=== PATIENT | female | born 1935 | race Caucasian/White ===

== ENCOUNTER 2016-06-22 15:24 | Outpatient (RCR) | payer MEDICARE, MEDICAID ==
[~2016-06-22 15:24] MED LIST: AMIT50TA3 PO; AMT50T PO; ASP81CT PO; EST.625T PO; HCT25T PO; HYDR-2890 PO; HYDR-3720 PO; MULT1TAB63; NAPR-243 PO; ONDA-42 SL; PARO10TA3 PO; POLY17PO23 GT; POLY17PO23 PO; POTA10CA43 PO; SULF1TAB38 PO; TRIGOSAMINE PO
== END 2016-09-20 | disposition home or self-care (01) ==
LOC: LAB 15:24
PROVIDERS: ATTEND Nurse Practitioner Family
DX: R19.7 Diarrhea, unspecified (principal)
CPT/HCPCS: 87045; 87046; 87177; 87324

== ENCOUNTER → 2016-10-18 | Outpatient (CLI) | payer MEDICARE, MEDICAID ==
[~2016-10-18] MED LIST changes: +CATHETER FLUSH 10 ML SYR IV PRN
--- NOTE | 2016-10-18 15:27 | Diagnostic Imaging Report ---
EXAMINATION: Three-phase nuclear medicine bone scan. INDICATION: Knee pain, prior left knee arthroplasty. TECHNIQUE: This study was performed following the administration of approximately 20 mCi of 99m-technetium MDP. Blood pool, blood flow, and delayed series of both knee joints was obtained. 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 On this exam, there is a photopenic defect involving the left knee joint which would correspond to the prosthesis. There does not appear to be any abnormal uptake about the prosthesis to suggest loosening. There is no focal area of increased activity to indicate an acute injury either. There does appear to be fairly severe degenerative disease involving the right knee joint, and there is a small area of increased signal along the medial aspect of the proximal tibia on the right. This may be due to degenerative disease or to recent trauma. The soft tissues are unremarkable. IMPRESSION: 1. There is no abnormal uptake about the total knee prosthesis on the left to suggest loosening or an acute abnormality. 2. 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 The small focus of increased activity along the medial aspect of the knee joint may also be due to degenerative disease or could be a sequela of recent trauma. If plain film examinations of the right knee are available they would be helpful for comparison. Dictated by: Dictated on workstation # [id number]
== END ==
LOC: CARD 10:00
PROVIDERS: ATTEND Orthopaedic Surgery
DX: M25.562 Pain in left knee (principal); Z96.652 Presence of left artificial knee joint; M17.11 Unilateral primary osteoarthritis, right knee
CPT/HCPCS: 78315

== ENCOUNTER → 2016-10-31 | Outpatient (CLI) | payer MEDICARE, MEDICAID ==
[~2016-10-31] MED LIST changes: -CATHETER FLUSH 10 ML SYR IV PRN
[2016-10-31 09:49] LABS: ALANINE AMINOTRANSFERASE 19 U/L (0-55); ALBUMIN 3.8 G/DL (3.2-4.5); ANION GAP 9 MMOL/L (5-14); ASPARTATE AMINO TRANSFERASE 20 U/L (5-34); BILIRUBIN,TOTAL 0.4 MG/DL (0.1-1.0); BLOOD UREA NITROGEN 20 MG/DL (7-18); BUN/CREATININE RATIO 23; CALCIUM 9.9 MG/DL (8.5-10.1); CARBON DIOXIDE 24 MMOL/L (21-32); CHLORIDE 110 MMOL/L (98-107); CHOLESTEROL 210 MG/DL (< 200); CREATININE SERUM 0.88 MG/DL (0.60-1.30); DIRECT LDL 126 MG/DL (1-129); GFR ESTIMATED > 60; GLUCOSE 94 MG/DL (70-105); POTASSIUM 4.2 MMOL/L (3.6-5.0); SODIUM 143 MMOL/L (135-145); TOTAL PROTEIN 6.8 G/DL (6.4-8.2); TRIGLYCERIDES 95 MG/DL (<150); VLDL CHOLESTEROL 19 MG/DL (5-40)
== END ==
LOC: LAB 09:08
PROVIDERS: ATTEND Physician Assistant
DX: I25.10 Atherosclerotic heart disease of native coronary artery without angina pectoris (principal); E78.2 Mixed hyperlipidemia; I10 Essential (primary) hypertension; R55 Syncope and collapse
CPT/HCPCS: 36415; 80053; 80061

== ENCOUNTER → 2017-06-05 | Outpatient (CLI) | payer MEDICARE, MEDICAID ==
--- NOTE | 2017-06-05 14:35 | Diagnostic Imaging Report ---
Bilateral screening mammogram 2D views with tomosynthesis. The current study was also evaluated with a Computer Aided Detection (CAD) system. INDICATION: Screening. No current complaints stated on the questionnaire. COMPARISON: 05/17/2016. FINDINGS: The breasts are composed of heterogeneously dense parenchyma which may decrease mammographic sensitivity. Benign-appearing calcifications are seen. Allowing for technique and positional differences, no suspicious change is seen. IMPRESSION: No significant change. ACR BI-RADS Category 2: Benign findings. Result letter will be mailed to the patient. Note: At least 10% of breast cancer is not imaged by mammography. Dictated by: Dictated on workstation # [id number]
== END ==
LOC: RAD 11:32
PROVIDERS: ATTEND Family Medicine
DX: Z12.31 Encounter for screening mammogram for malignant neoplasm of breast (principal)
CPT/HCPCS: 77067

== ENCOUNTER 2017-06-20 12:05 | Emergency (ER) | payer MEDICARE, MEDICAID ==
[~2017-06-20] VITALS: Ht 160 cm; Wt 72.6 kg
--- OUTSIDE RECORDS SUMMARY | 2017-06-20 12:10 | XMS REPORT ---
Author Author BELKIS MOREL Organization eClinicalWorks Address Unknown Phone Unavailable Care Team Providers Care Railway Traction Line Worker Name Role Phone BELKIS MOREL CP Unavailable Allergies No Known Allergies Problems Problem Type Condition ICD-9 Code Onset Dates Condition Status Problem Edema 782.3 Active Problem Dysphagia, unspecified 787.20 Active Problem Dizziness and giddiness 780.4 Active Problem Lumbago 724.2 Active Problem Counseling on injury prevention V65.43 Active Problem Symptomatic menopausal or female climacteric states 627.2 Active Problem Orthostatic hypotension 458.0 Active Problem Essential hypertension, benign 401.1 Active Medications Medication Code System Code Instructions Start Date End Date Status Dosage Amoxicillin [facility] [place] [address]-27 500 MG Orally Once a day- Rewrote in Belkis's name. Orginal rx from Dr Isidro Apr 30, 2015 4 capsules one time- 1 hour before procedure Results No Known Results Summary Purpose eClinicalWorks Submission
--- OUTSIDE RECORDS SUMMARY | 2017-06-20 12:10 | XMS REPORT ---
Author Author BELKIS MOREL [facility] eClinicalWorks Address Unknown Phone Unavailable Care Team Providers Care [employer] Assistant Manager Name Role Phone BELKIS MOREL CP Unavailable Allergies, Adverse Reactions, Alerts Substance Reaction Event Type Morphine Info Not Available Drug Allergy Codeine Info Not Available Drug Allergy Ancef Info Not Available Drug Allergy Amonia Info Not Available Non Drug Allergy Tape Info Not Available Non Drug Allergy Problems Problem Type Condition Code Onset Dates Condition Status Assessment Atrophic vaginitis N95.2 Active Problem Other seasonal allergic rhinitis J30.2 Active Problem Change in bowel habits R19.4 Active Problem Rash and nonspecific skin eruption R21 Active Problem Hyperlipidemia E78.5 Active Assessment Hot flashes due to menopause N95.1 Active Problem History of colon polyps Z86.010 Active Problem History of colon resection Z90.49 Active Medications Medication Code System Code Instructions Start Date End Date Status Dosage Potassium Chloride Sachi ER [facility] 60166884508 20 MEQ TAKE ONE TABLET BY MOUTH DAILY ALONG WITH HYDROCHLOROTHIAZIDE Hydrochlorothiazide [facility] [address]-61 25 MG TAKE ONE TABLET BY MOUTH ONCE DAILY Amitriptyline HCl [facility] 84134892189 50 MG TAKE ONE TABLET BY MOUTH AT BEDTIME Paroxetine HCl [facility] [address]-60 10 mg Orally Once a day Mar 31, 2016 1 tablet in the morning Flonase [facility] [address]-52 50 MCG/DOSE Nasally Once a day Sep 30, 2015 1 spray in each nostril Dicyclomine HCl [facility] [address]-15 10 MG Orally Four times a day 1 capsule Clobetasol Propionate [facility] [address]-16 0.05 % Externally Twice a day to vulvar sparingly Mar 31, 2016 Apr 14, 2016 1 application to affected area Restasis [facility] [address]-30 0.05 % Apr 04, 2014 instill 1 drop into both eyes by ophthalmic route 2 times per day Triamcinolone Acetonide [facility] [address]-55 0.1 % Externally Twice a day 1 application to affected area Clobetasol Propionate [facility] [address]-01 0.05 % Externally Twice a day February 16, 2016 1 application to affected area MiraLax [facility] [address]-88 17 gram/dose Jun 11, 2014 take 17 g by Oral route 1 time per day Procedures Procedure Coding System Code Date Office Visit, Est Pt., Level 4 CPT-4 08647 Mar 31, 2016 [facility] VISIT ESTABLISHED PATIENT CPT-4 G0467 Mar 31, 2016 Vital Signs Date/Time: Mar 31, 2016 Cardiac Monitoring Heart Rate 80 bpm Weight 157.1 lbs Height 62 in BMI 28.73 Index Blood Pressure Diastolic 77 mmHg Blood Pressure Systolic 124 mmHg Results No Known Results Summary Purpose eClinicalWorks Submission
--- OUTSIDE RECORDS SUMMARY | 2017-06-20 12:10 | XMS REPORT ---
Author Author BELKIS MORLE [facility] eClinicalWorks Address Unknown Phone Unavailable Care Team Providers Care Oxyacetylene Burner Name Role Phone BELKIS MOREL CP Unavailable Allergies, Adverse Reactions, Alerts Substance Reaction Event Type Morphine Info Not Available Drug Allergy Codeine Info Not Available Drug Allergy Ancef Info Not Available Drug Allergy Amonia Info Not Available Non Drug Allergy Tape Info Not Available Non Drug Allergy Problems Problem Type Condition ICD-9 Code Onset Dates Condition Status Assessment Leg pain, bilateral 729.5 Active Problem Edema 782.3 Active Assessment Leg cramping 729.82 Active Assessment Post-menopausal V49.81 Active Problem Dysphagia, unspecified 787.20 Active Problem Dizziness and giddiness 780.4 Active Problem Lumbago 724.2 Active Problem Counseling on injury prevention V65.43 Active Problem Symptomatic menopausal or female climacteric states 627.2 Active Problem Orthostatic hypotension 458.0 Active Problem Essential hypertension, benign 401.1 Active Medications Medication Code System Code Instructions Start Date End Date Status Dosage MiraLax [facility] [address]-69 17 gram/dose Jun 11, 2014 take 17 g by Oral route 1 time per day Restasis [facility] [address]-48 0.05 % Apr 04, 2014 instill 1 drop into both eyes by ophthalmic route 2 times per day Cholecalciferol [facility] [address] 71596 UNIT Orally twice weekly for 8 weeks then 2,000 units over the counter daily 1 tablet Hydrochlorothiazide [facility] 28125653916 25 MG TAKE ONE TABLET BY MOUTH DAILY Amitriptyline HCl [facility] [address]-05 50 MG Orally Once a day 1 tablet at bedtime Potassium Chloride Sachi ER [facility] 13789811340 20 MEQ TAKE ONE TABLET BY MOUTH DAILY ALONG WITH HYDROCHLOROTHIAZIDE Premarin [facility] [address]-46 0.3 MG Orally Once a day Oct 24, 2014 take 1 tablet by Oral route 1 time per day Procedures Procedure Coding System Code Date Office Visit, Est Pt., Level 3 CPT-4 03218 Apr 22, 2015 [facility] VISIT ESTABLISHED PATIENT CPT-4 G0467 Apr 22, 2015 Vital Signs Date/Time: Apr 22, 2015 Temperature 97.7 F Weight 155.3 lbs Height 62 in BMI 28.40 Index Blood Pressure Diastolic 68 mmHg Blood Pressure Systolic 120 mmHg Cardiac Monitoring Heart Rate 80 bpm Results No Known Results Summary Purpose eClinicalWorks Submission
--- OUTSIDE RECORDS SUMMARY | 2017-06-20 12:11 | XMS REPORT ---
Author Author BELKIS MOREL Organization eClinical[employer] Address Unknown Phone Unavailable Care Team Providers Care Automobile Mechanic Apprentice Name Role Phone BELKIS MOREL CP Unavailable [...] Problem Essential hypertension, benign 401.1 Active Medications No Known Medications Results No Known Results Summary Purpose eClinicalWorks Submission
--- OUTSIDE RECORDS SUMMARY | 2017-06-20 12:11 | XMS REPORT ---
Author Author BELKIS MOREL [facility] eClinicalWorks Address Unknown Phone Unavailable Care Team Providers Care Bottle Booth Attendant Name Role Phone BELKIS MOREL CP Unavailable Allergies No Known Allergies Problems Problem Type Condition Code Onset Dates Condition Status Assessment Hyperlipidemia E78.5 Active Problem Symptomatic menopausal or female climacteric states 627.2 Active Problem Edema 782.3 Active Assessment Vitamin D deficiency E55.9 Active Assessment Lower leg pain M79.669 Active Problem Lumbago 724.2 Active Problem Dysphagia, unspecified 787.20 Active Problem Hyperlipidemia E78.5 Active Problem Essential hypertension, benign 401.1 Active Problem Counseling on injury prevention V65.43 Active Problem Dizziness and giddiness 780.4 Active Problem Orthostatic hypotension 458.0 Active Medications No Known Medications Procedures Procedure Coding System Code Date VENIPUNCT, ROUTINE* CPT-4 08210 Jul 06, 2015 [facility] NOBLL Jul 06, 2015 Results Name Result Date Reference Range Unit Abnormality Flag ROUTINE VENIPUNCTURE Summary Purpose eClinicalWorks Submission
--- OUTSIDE RECORDS SUMMARY | 2017-06-20 12:11 | XMS REPORT ---
Author Author BELKIS MOREL [facility] eClinicalWorks Address Unknown Phone Unavailable Care Team Providers Care Pupil Personnel Worker Name Role Phone BELKIS MOREL CP [...] states 627.2 Active Problem Edema 782.3 Active Problem Lumbago 724.2 Active Problem Dysphagia, unspecified 787.20 Active Problem Hyperlipidemia E78.5 Active Problem Essential hypertension, benign 401.1 Active Problem Counseling on injury prevention V65.43 Active Problem Dizziness and giddiness 780.4 Active Problem Orthostatic hypotension 458.0 Active Assessment Vitamin D deficiency E55.9 Active Assessment Lower leg pain M79.669 Active Assessment Encounter for immunization Z23 Active Medications Medication Code System Code Instructions Start Date End Date Status Dosage MiraLax [facility] [address]-74 17 gram/dose Jun 11, 2014 take 17 g by Oral route 1 time per day Cholecalciferol [facility] [address] 87860 UNIT Orally twice weekly for 8 weeks then 2,000 units over the counter daily 1 tablet Potassium Chloride Sachi ER [facility] 79691482358 20 MEQ TAKE ONE TABLET BY MOUTH DAILY ALONG WITH HYDROCHLOROTHIAZIDE Hydrochlorothiazide [facility] 03933459573 25 MG TAKE ONE TABLET BY MOUTH DAILY Premarin [facility] [address]-84 0.3 MG TAKE ONE TABLET BY MOUTH DAILY Amitriptyline HCl [facility] 22100823152 50 MG TAKE ONE TABLET BY MOUTH AT BEDTIME Restasis [facility] [address]-29 0.05 % Apr 04, 2014 instill 1 drop into both eyes by ophthalmic route 2 times per day Procedures Procedure Coding System Code Date SINGLE IMMUNIZATION ADMIN CPT-4 64290 Jul 01, 2015 [facility] VISIT ESTABLISHED PATIENT CPT-4 G0467 Jul 01, 2015 FLUARIX QUAD (3 & UP)-GSK-2014 CPT-4 11550 Jul 01, 2015 Office Visit, Est Pt., Level 3 CPT-4 56721 Jul 01, 2015 Vital Signs Date/Time: Jul 01, 2015 Temperature 97.3 F Weight 153.0 lbs Height 62 in BMI 27.98 Index Blood Pressure Diastolic 86 mmHg Blood Pressure Systolic 130 mmHg Cardiac Monitoring Heart Rate 80 bpm Results No Known Results Immunizations Vaccine Administration Date FLUARIX QUAD (3 & UP)-GSK-2014Jul 01, 2015 Summary Purpose eClinicalWorks Submission
--- OUTSIDE RECORDS SUMMARY | 2017-06-20 12:11 | XMS REPORT ---
Author Author BELKIS MOREL [facility] eClinicalWorks Address Unknown Phone Unavailable Care Team Providers Care Financial Secretary Name Role Phone BELKIS MOREL CP Unavailable Allergies, Adverse Reactions, Alerts Substance Reaction Event Type Morphine Info Not Available Drug Allergy Codeine Info Not Available Drug Allergy Ancef Info Not Available Drug Allergy Amonia Info Not Available Non Drug Allergy Tape Info Not Available Non Drug Allergy Problems Problem Type Condition Code Onset Dates Condition Status Assessment Hot flashes due to menopause N95.1 Active Problem Hyperlipidemia E78.5 Active Assessment Essential hypertension I10 Active Assessment Hyperlipidemia E78.5 Active Assessment Skin lesion of cheek L98.9 Active Problem Skin lesion of cheek L98.9 Active Problem Rash and nonspecific skin eruption R21 Active Problem Essential hypertension I10 Active Problem History of colon polyps Z86.010 Active Problem History of colon resection Z90.49 Active Problem Other seasonal allergic rhinitis J30.2 Active Problem Change in bowel habits R19.4 Active Medications Medication Code System Code Instructions Start Date End Date Status Dosage Triamcinolone Acetonide [facility] [address]-26 0.1 % Externally Twice a day 1 application to affected area Dicyclomine HCl [facility] [address]-26 10 MG Orally Four times a day 1 capsule Amitriptyline HCl [facility] 14080685960 50 MG TAKE ONE TABLET BY MOUTH AT BEDTIME MiraLax [facility] [address]-73 17 gram/dose Jun 11, 2014 take 17 g by Oral route 1 time per day Restasis [facility] [address]-62 0.05 % Apr 04, 2014 instill 1 drop into both eyes by ophthalmic route 2 times per day Potassium Chloride Sachi ER [facility] 10577150438 20 MEQ TAKE ONE TABLET BY MOUTH DAILY ALONG WITH HYDROCHLOROTHIAZIDE Clobetasol Propionate [facility] [address]-85 0.05 % Externally Twice a day February 16, 2016 1 application to affected area Flonase NDC 0 50 MCG/DOSE Nasally Once a day Sep 30, 2015 1 spray in each nostril Paroxetine HCl [facility] [address]-65 10 mg Orally Once a day 1 tablet in the morning Hydrochlorothiazide [facility] [address]-31 25 MG TAKE ONE TABLET BY MOUTH ONCE DAILY Procedures Procedure Coding System Code Date Office Visit, Est Pt., Level 4 CPT-4 47236 Apr 21, 2016 [facility] VISIT ESTABLISHED PATIENT CPT-4 G0467 Apr 21, 2016 Vital Signs Date/Time: Apr 21, 2016 Cardiac Monitoring Heart Rate 82 bpm Weight 157.0 lbs Height 62 in BMI 28.71 Index Blood Pressure Diastolic 79 mmHg Blood Pressure Systolic 131 mmHg Results No Known Results Summary Purpose eClinicalWorks Submission
--- OUTSIDE RECORDS SUMMARY | 2017-06-20 12:11 | XMS REPORT ---
Author Author BELKIS MOREL [facility] Address [address] [place] [address] Care Team Providers Care Interface Developer Name Role Phone BELKIS MOREL Unavailable PROBLEMS Type Condition ICD9-CM Code XQU76-GY Code Onset Dates Condition Status SNOMED Code Assessment Screening breast examination Z12.39 09 Apr, 2016 Active 079839366 Problem History of colon resection Z90.49 Active 660490519 Problem Hyperlipidemia E78.5 Active 17577532 Problem Essential hypertension I10 Active 23177371 Problem Skin lesion of cheek L98.9 Active 79698062 Problem Change in bowel habits R19.4 Active 07306345 Problem History of colon polyps Z86.010 Active 850474482 Problem Rash and nonspecific skin eruption R21 Active 958714684 Problem Other seasonal allergic rhinitis J30.2 Active 107229475 ALLERGIES Unknown Allergies SOCIAL HISTORY No smoking Hx information available PLAN OF CARE VITAL SIGNS MEDICATIONS Unknown Medications RESULTS Name Result Date Reference Range Mammogram, Bilateral Screening 2016-05-17 PROCEDURES No Known procedures IMMUNIZATIONS No Known Immunizations
--- OUTSIDE RECORDS SUMMARY | 2017-06-20 12:11 | XMS REPORT ---
Author Author BELKIS MOREL [facility] eClinicalWorks Address Unknown Phone Unavailable Care Team Providers Care Cutter Hand Name Role Phone BELKIS MOREL CP Unavailable Allergies No Known Allergies Problems Problem Type Condition Code Onset Dates Condition Status Problem Hyperlipidemia E78.5 Active Problem Skin lesion of cheek L98.9 Active Problem Rash and nonspecific skin eruption R21 Active Problem Essential hypertension I10 Active Problem History of colon polyps Z86.010 Active Problem History of colon resection Z90.49 Active Problem Other seasonal allergic rhinitis J30.2 Active Problem Change in bowel habits R19.4 Active Medications No Known Medications Results No Known Results Summary Purpose eClinicalWorks Submission
--- OUTSIDE RECORDS SUMMARY | 2017-06-20 12:11 | XMS REPORT ---
Author Author BELKIS MOREL Organization eClinicalWorks Address Unknown Phone Unavailable Care Team Providers Care Information Technology Advisor Name Role Phone BELKIS MOREL CP Unavailable Allergies No Known Allergies Problems Problem Type Condition Code Onset Dates Condition Status Problem Symptomatic menopausal or female climacteric states 627.2 Active Problem Edema 782.3 Active Problem Lumbago 724.2 Active Problem Dysphagia, unspecified 787.20 Active Problem Hyperlipidemia E78.5 Active Problem Essential hypertension, benign 401.1 Active Problem Counseling on injury prevention V65.43 Active Problem Dizziness and giddiness 780.4 Active Problem Orthostatic hypotension 458.0 Active Medications No Known Medications Results No Known Results Summary Purpose eClinicalWorks Submission
[2017-06-20] MEDS ORDERED: ASPIRIN 81 MG CHEW (CHILDREN'S ASA) ONE (12:17)
[2017-06-20] MEDS ORDERED: LORazepam INJ 2 MG/ML (ATIVAN) VIAL ONE (12:18)
--- NOTE | 2017-06-20 12:28 | ED Chest Pain ---
General Stated Complaint: CP Source: patient, family (son) Exam Limitations: no limitations History of Present Illness Time seen by provider: 12:18 Initial Comments Patient presents to ER by private conveyance with chief complaint she is having some substernal chest pain and epigastrium pain that started about 3 weeks ago is intermittent does not radiate anywhere. She doesn't history of GERD and reflux for which she is been using an [id number] antacid with some relief. She does not take aspirin or nausea a history of heart disease. She does not smoke or have thyroid problems. She does have hypertension but no cholesterolemia. She is not having any shortness of breath or nausea. Patient is known to Dr. Bates because in 2012 she was having syncopal spells and was worked up in his office but did not find any pathology. Patient states she has a red patch on her left fenton for several weeks now that is been being treated outpatient with creams has not resolved nor is it growing. No history of clots or pulmonary emboli and she has not been in surgery or had any periods of immobility recently. She says she walks 3 miles a day. Patient has had a gallbladder, appendix and partial colon resection due to adhesions as well as hysterectomy to include the ovaries. Allergies and Home Medications Allergies Coded Allergies: tramadol (Verified Allergy, Intermediate, RASH..CAN TAKE DEMEROL AND DARVOCET, 06/28/07) cefazolin sodium (Unverified Allergy, Unknown, 04/15/14) codeine (Verified Allergy, Unknown, 01/26/06) morphine (Verified Adverse Reaction, Unknown, NAUSEA, 12/07/11) pt stated that she has an upset stomach when given morphine and will not take medication Uncoded Allergies: TAPE (Allergy, Unknown, 01/26/06) Home Medications Hydrochlorothiazide 25 Mg Tablet, (Reported) Potassium Chloride 20 Meq Tab.er.prt, (Reported) Review of Systems Constitutional: No chills, No diaphoresis EENTM: No Eye Pain, No Ear Pain Respiratory: Cough (chronic for years nonproductive), Denies Orthopnea, Denies Shortness of Air, Denies SOA With Exertion Cardiovascular: See HPI, Chest Pain, Denies Edema, Denies Lightheadedness, Syncope (history of from 2012) Gastrointestinal: Denies Nausea, Denies Vomiting Genitourinary: Denies Burning, Denies Discharge Skin: No pruritus, No rash Psychiatric/Neurological: Denies Headache, Denies Numbness, Denies Paresthesia , Denies Seizure Past Pyjurpa-Abbdkb-Oszowk Hx Patient Social History Alcohol Use: Denies Use Recreational Drug Use: No Smoking Status: Never a Smoker Recent Hopitalizations: Yes Immunizations Up To Date Tetanus Booster (TDap): Less than 5yrs Date of Pneumonia Vaccine: Aug 28, 2008 Date of Influenza Vaccine: Aug 12, 2013 Surgeries Surgeries: Abdominal, Appendectomy, Eye Surgery, Gallbladder, Hysterectomy, Orthopedic, Tonsillectomy Reproductive System Hx Reproductive Disorders: No 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 Genitourinary Genitourinary Disorders: Kidney Stones Gastrointestinal Gastrointestinal Disorders: Chronic Constipation Musculoskeletal Musculoskeletal Disorders: Arthritis Physical Exam Vital Signs Vital Sign - Last 12Hours 06/20/17 12:05 Temp 98.2 Pulse 100 Resp 18 B/P (MAP) 238/118 Pulse Ox 98 O2 Delivery Room Air Capillary Refill : General Appearance: WD/WN, Anxious HEENT: PERRL/EOMI, Pharynx Normal Neck: Full Range of Motion, Normal Inspection, Supple Respiratory: Chest Non Tender, No Accessory Muscle Use, No Respiratory Distress , Wheezing (right base) Cardiovascular: Regular Rate, Rhythm, No Edema, No Murmur, Normal Peripheral Pulses Gastrointestinal: Normal Bowel Sounds, Soft, No Distended, No Guarding, No Hepatomegaly (negative for Hahn's sign), No Rebound, Tenderness (right upper quadrant and epigastric region) Extremity: Normal Capillary Refill, No Pedal Edema Neurologic/Psychiatric: Alert, Oriented x3, Other (very anxious and agitated shortly after arrival with tremors and hyperventilation.) Skin: Normal Color, Warm/Dry, Other (erythematous patch on left anterior fenton) Progress/Results/Core Measures Results/Orders Lab Results Laboratory Tests Test 06/20/17 12:15 Range/Units White Blood Count 7.7 4.3-11.0 10^3/uL Red Blood Count 4.69 4.35-5.85 10^6/uL Hemoglobin 13.8 11.5-16.0 G/DL Hematocrit 41 35-52 % Mean Corpuscular Volume 88 80-99 FL Mean Corpuscular Hemoglobin 29 25-34 PG Mean Corpuscular Hemoglobin Concent 34 32-36 G/DL Red Cell Distribution Width 13.6 10.0-14.5 % Platelet Count 309 130-400 10^3/uL Mean Platelet Volume 9.5 7.4-10.4 FL Neutrophils (%) (Auto) 56 42-75 % Lymphocytes (%) (Auto) 29 12-44 % Monocytes (%) (Auto) 10 0-12 % Eosinophils (%) (Auto) 5 0-10 % Basophils (%) (Auto) 1 0-10 % Neutrophils # (Auto) 4.3 1.8-7.8 X 10^3 Lymphocytes # (Auto) 2.3 1.0-4.0 X 10^3 Monocytes # (Auto) 0.8 0.0-1.0 X 10^3 Eosinophils # (Auto) 0.4 H 0.0-0.3 10^3/uL Basophils # (Auto) 0.1 0.0-0.1 10^3/uL Prothrombin Time 12.4 12.2-14.7 SEC INR Comment 0.9 0.8-1.4 Activated Partial Thromboplast Time 26 24-35 SEC D-Dimer 0.66 H 0.00-0.49 UG/ML Sodium Level 138 135-145 MMOL/L Potassium Level 3.7 3.6-5.0 MMOL/L Chloride Level 104 98-107 MMOL/L Carbon Dioxide Level 24 21-32 MMOL/L Anion Gap 10 5-14 MMOL/L Blood Urea Nitrogen 17 7-18 MG/DL Creatinine 0.84 0.60-1.30 MG/DL Estimat Glomerular Filtration Rate > 60 BUN/Creatinine Ratio 20 Glucose Level 102 70-105 MG/DL Calcium Level 10.6 H 8.5-10.1 MG/DL Magnesium Level 2.2 1.8-2.4 MG/DL Total Bilirubin 0.4 0.1-1.0 MG/DL Aspartate Amino Transf (AST/SGOT) 29 5-34 U/L Alanine Aminotransferase (ALT/SGPT) 20 0-55 U/L Alkaline Phosphatase 144 H 40-136 U/L Myoglobin 51.8 10.0-92.0 NG/ML Troponin I < 0.30 <0.30 NG/ML Total Protein 8.5 H 6.4-8.2 GM/DL Albumin 4.4 3.2-4.5 GM/DL Lipase 36 8-78 U/L My Orders Orders - BENNYLAURIE Ekg Tracing (06/20/17 12:07) Cbc With Automated Diff (06/20/17 12:24) Magnesium (06/20/17 12:24) Cardiac Profile 1 (06/20/17 12:24) Comprehensive Metabolic Panel (06/20/17 12:24) Myoglobin Serum (06/20/17 12:24) Protime With Inr (06/20/17 12:24) Partial Thromboplastin Time (06/20/17 12:24) O2 (06/20/17 12:24) Monitor-Rhythm Ecg Trace Only (06/20/17 12:24) Lipid Panel (06/21/17 06:00) Aspirin Chewable Tablet (Baby Aspirin Ch (06/20/17 12:30) Saline Lock/Iv-Start (06/20/17 12:24) Lipase (06/20/17 12:24) Fibrin Degradation Products (06/20/17 12:24) Chest Pa/Lat (2 View) (06/20/17 12:24) Lorazepam Tablet (Ativan Tablet) (06/20/17 12:30) Aspirin Chewable Tablet (Baby Aspirin Ch (06/20/17 12:17) Lorazepam Injection (Ativan Injection) (06/20/17 12:18) Lidocaine 2% Viscous 15 Ml (Xylocaine Vi (06/20/17 13:00) Antacid Suspension (Mylanta Suspension (06/20/17 13:00) Famotidine Injection (Pepcid Injection) (06/20/17 12:51) Medications Given in ED Current Medications Medications Dose Ordered Sig/Ira Route Start Time Stop Time Status Last Admin Dose Admin Al Hydrox/Mg Hydrox/Simethicone 30 ml ONCE ONCE PO 06/20/17 13:00 06/20/17 13:01 DC 06/20/17 12:59 30 ML Aspirin 324 mg ONCE ONCE PO 06/20/17 12:30 06/20/17 12:31 DC 06/20/17 12:29 324 MG Lidocaine HCl 15 ml ONCE ONCE PO 06/20/17 13:00 06/20/17 13:01 DC 06/20/17 12:59 15 ML Lorazepam 2 mg STK-MED ONCE .ROUTE 06/20/17 12:18 06/20/17 12:27 DC 06/20/17 12:29 1 MG Vital Signs/I&O Vital Sign - Last 12Hours 06/20/17 06/20/17 12:05 12:05 Temp 98.2 Pulse 100 Resp 18 B/P (MAP) 238/118 Pulse Ox 98 O2 Delivery Room Air Progress Note : Time: 12:38 Progress Note Patient appears to be having an anxiety attack acutely and her chest pain has resolved seroma getting her morphine we will go ahead and let her have some Ativan to help her calm down. Heart score 3 points. It would be reasonable to have her follow up with cardiology and her primary care physician if her troponin and chest x-ray don't show anything wrong with the heart after a delta troponin. She's had no shortness of breath and has had a cough as well as some redness on the anterior fenton and both of her calves are tender so a pulmonary embolism is very unlikely however we'll going get a d-dimer as it might explain her chest symptoms. Because of her wheeze we'll also get a 2 view x-ray. ECG Initial ECG Impression Date: Jun 20, 2017 Initial ECG Impression Time: 12:04 Initial ECG Rate: 90 Initial ECG Rhythm: Normal Sinus Initial ECG Intervals: Normal Initial ECG Impression: Normal, Nonspecific Changes Initial ECG Comparisson: Unchanged Comment No T-wave elevation or depression. PACs seen. Diagnostic Imaging Diagonstic Imaging: Xray Plain Films/CT/US/NM/MRI: chest Comments No acute cardiopulmonary processes noted. NAME: CHAI ROBERTSON [facility] REC#: [id number] PT STATUS: REG ER : 1935 PHYSICIAN: LAURIE ZAPATA MD ADMIT DATE: 06/20/17/ER Draft Date of Exam:06/20/17 CHEST PA/LAT (2 VIEW) INDICATION: Chest pain. COMPARISON: 07/21/2014. FINDINGS: Two views of the chest are obtained. Heart size is normal. The pulmonary vessels appear unremarkable. There is no pneumothorax, mediastinal widening or pleural fluid. The lungs are clear. The osseous structures appear unremarkable. IMPRESSION: Negative chest. Dictated on workstation # [id number] Dict: 06/20/17 1258 Trans: 06/20/17 1305 [facility] [id number] Interpreted by: VANDANA LUU DO Electronically signed by: Reviewed: Reviewed by Me Consults Consults : Consulting Physician: BILLY BATES MD Consults Notes Discussed the case, findings, imaging and history of the patient. He is willing to see the patient on in his clinic. Departure Impression Impression: Primary Impression: Chest pain Qualified Codes: R07.89 - Other chest pain Disposition: 01 HOME, SELF-CARE Condition: Stable Departure-Patient Inst. Decision time for Depature: 13:07 Referrals: CLAUDIA GARSIA MD (PCP/Family) Primary Care Physician Patient Instructions: Chest Pain That Is Not Caused by the Heart (DC) Add. 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 I spoke with your heart doctor Dr. Bates and he wants to have you call his clinic and obtain an appointment to be seen this . If you in your heart doctor do a workup and do not find the heart isn't causing her chest pain other things to consider would be your stomach or esophagus. I recommend that you be on an over-the- counter Zantac (ranitidine) 20 mg twice a day for the next 2 weeks. Plan on following up with your primary care physician in the next 1-2 weeks. If you begin to have chest pain accompanied with nausea, fevers, shortness of breath than you should return to the ER otherwise plan on making your follow-up appointment with your heart doctor. Dr. Bates's clinic number is [phone]. Copy Copies To 1: CLAUDIA GARSIA MD Copies To 2: BILLY BATES MD, TITUS J Jun 20, 2017 12:28
[2017-06-20] MEDS ORDERED: ASPIRIN 81 MG CHEW (CHILDREN'S ASA) PO ONE (12:30)
[2017-06-20] MEDS ORDERED: LORazepam 0.5 MG (ATIVAN) TABLET PO ONE (12:30)
[2017-06-20 12:32] LABS: BASOPHILS # (AUTO) 0.1 10^3/uL (0.0-0.1); BASOPHILS % (AUTO) 1 % (0-10); EOSINOPHILS # (AUTO) 0.4 10^3/uL (0.0-0.3); EOSINOPHILS % (AUTO) 5 % (0-10); LYMPHOCYTES # (AUTO) 2.3 X 10^3 (1.0-4.0); LYMPHOCYTES % (AUTO) 29 % (12-44); MEAN CORPUSCULAR HEMOGLOBIN 29 PG (25-34); MEAN CORPUSCULAR HGB CONC 34 G/DL (32-36); MEAN CORPUSCULAR VOLUME 88 FL (80-99); MEAN PLATELET VOLUME 9.5 FL (7.4-10.4); MONOCYTES # (AUTO) 0.8 X 10^3 (0.0-1.0); MONOCYTES % (AUTO) 10 % (0-12); NEUTROPHILS # (AUTO) 4.3 X 10^3 (1.8-7.8); NEUTROPHILS % (AUTO) 56 % (42-75); PLATELET COUNT 309 10^3/uL (130-400); RED BLOOD COUNT 4.69 10^6/uL (4.35-5.85); RED CELL DISTRIBUTION WIDTH 13.6 % (10.0-14.5); WHITE BLOOD COUNT 7.7 10^3/uL (4.3-11.0)
[2017-06-20 12:36] LABS: INR 0.9 (0.8-1.4); PROTHROMBIN TIME PATIENT 12.4 SEC (12.2-14.7)
[2017-06-20 12:45] LABS: ALANINE AMINOTRANSFERASE 20 U/L (0-55); ALBUMIN 4.4 GM/DL (3.2-4.5); ANION GAP 10 MMOL/L (5-14); ASPARTATE AMINO TRANSFERASE 29 U/L (5-34); BILIRUBIN,TOTAL 0.4 MG/DL (0.1-1.0); BLOOD UREA NITROGEN 17 MG/DL (7-18); BUN/CREATININE RATIO 20; CALCIUM 10.6 MG/DL (8.5-10.1); CARBON DIOXIDE 24 MMOL/L (21-32); CHLORIDE 104 MMOL/L (98-107); CREATININE SERUM 0.84 MG/DL (0.60-1.30); GFR ESTIMATED > 60; GLUCOSE 102 MG/DL (70-105); LIPASE 36 U/L (8-78); MAGNESIUM 2.2 MG/DL (1.8-2.4); POTASSIUM 3.7 MMOL/L (3.6-5.0); SODIUM 138 MMOL/L (135-145); TOTAL PROTEIN 8.5 GM/DL (6.4-8.2)
[2017-06-20] MEDS ORDERED: FAMOTIDINE 20MG/2ML IV (PEPCID) IV STA (12:51)
[2017-06-20 12:52] LABS: MYOGLOBIN SERUM 51.8 NG/ML (10.0-92.0)
[2017-06-20] MEDS ORDERED: POTA20TA15 (12:53)
[2017-06-20] MEDS ORDERED: HYDR25TA4 (12:53)
[2017-06-20] MEDS ORDERED: ANTACID SUSP 30 ML UDC (MYLANTA) PO ONE (13:00)
[2017-06-20] MEDS ORDERED: LIDOCAINE 2% VISCOUS 15 ML UDC PO ONE (13:00)
--- NOTE | 2017-06-20 13:05 | Diagnostic Imaging Report ---
INDICATION: Chest pain. COMPARISON: 07/21/2014. FINDINGS: Two views of the chest are obtained. Heart size is normal. The pulmonary vessels appear unremarkable. There is no pneumothorax, mediastinal widening or pleural fluid. The lungs are clear. The osseous structures appear unremarkable. IMPRESSION: Negative chest. Dictated by: Dictated on workstation # [id number]
[2017-06-20 13:24] VITALS: BP 145/57
== END 2017-06-20 13:25 | disposition home or self-care (01) ==
LOC: EDUNIT# 12:05 → ER 12:06
DX: R07.2 Precordial pain (principal); Z90.49 Acquired absence of other specified parts of digestive tract; Z90.710 Acquired absence of both cervix and uterus; Z90.89 Acquired absence of other organs; Z87.442 Personal history of urinary calculi; Z87.19 Personal history of other diseases of the digestive system
CPT/HCPCS: 36415; 71020; 80053; 83690; 83735; 83874; 84484; 85025; 85379; 85610; 85730; 93005; 93041; 96374; 96375

== ENCOUNTER → 2017-07-10 | Outpatient (CLI) | payer MEDICARE, MEDICAID ==
[~2017-07-10] MED LIST changes: +FISH1CAP15 PO; +HYDR25TA4; +HYDR25TA4 PO; +PANT40TA3 PO; +POLY17PO6 PO; +POTA20TA15; +POTA20TA15 PO; +SUCR1TAB36 PO
== END ==
LOC: CARD 07:35
PROVIDERS: ATTEND Physician Assistant
DX: I25.10 Atherosclerotic heart disease of native coronary artery without angina pectoris (principal); R07.89 Other chest pain; E78.2 Mixed hyperlipidemia; I10 Essential (primary) hypertension; Z82.49 Family history of ischemic heart disease and other diseases of the circulatory system

== ENCOUNTER → 2017-07-26 | Outpatient (CLI) | payer MEDICARE, MEDICAID ==
[~2017-07-26] VITALS: Ht 160 cm; Wt 72.6 kg
[~2017-07-26] MED LIST changes: +CATHETER FLUSH 10 ML SYR IV PRN; +REGADENOSON 0.4 MG/5 ML SYR (LEXISCAN) IV ONE
--- NOTE | 2017-07-26 22:21 | STRESS TEST ---
DATE OF SERVICE: 07/26/2017 LEXISCAN MYOVIEW STRESS TEST REPORT REFERRING PHYSICIAN: Brian Connelly M.D. Baseline heart rate is 75. Baseline blood pressure 148/66. Baseline EKG is sinus rhythm with no ischemic changes. In summary, the patient was injected with 10.59 mCi of technetium-99 Myoview and the resting images were obtained. Then, the patient received 0.4 mg of Lexiscan followed by 29.7 mCi of technetium-99 Myoview. Throughout the test, there were no EKG changes. The resting and stress images were reviewed and compared in the short axis, horizontal long axis, and vertical long axis views. Review of the images showed good radiotracer uptake with no significant ischemia or infarction. SSS is 1, SDS 1, TID value 1.03. On the gated images, the left ventricle appeared to be normal size with normal contractility. Calculated ejection fraction 65%. CONCLUSION: 1. The patient tolerated Lexiscan well. 2. No significant ischemia or infarction on SPECT images. 3. Normal left ventricular size with normal contractility. Calculated ejection fraction 65%. Job ID: [id number] DocumentID: [id number] Dictated Date: 07/26/2017 16:08:14 Metal Reed Tuner Date: 07/26/2017 20:57:27 Dictated By: BILLY NASH MD
== END ==
LOC: CARD 08:31
PROVIDERS: ATTEND Physician Assistant
DX: I25.10 Atherosclerotic heart disease of native coronary artery without angina pectoris (principal); R07.89 Other chest pain; I10 Essential (primary) hypertension; E78.2 Mixed hyperlipidemia; Z82.49 Family history of ischemic heart disease and other diseases of the circulatory system
CPT/HCPCS: 78452; 93017

== ENCOUNTER → 2018-06-13 | Outpatient (CLI) | payer MEDICARE, MEDICAID ==
[~2018-06-13] MED LIST changes: -CATHETER FLUSH 10 ML SYR IV PRN; -REGADENOSON 0.4 MG/5 ML SYR (LEXISCAN) IV ONE
--- NOTE | 2018-06-13 14:04 | Diagnostic Imaging Report ---
INDICATION: Routine screening. COMPARISON: 06/05/2017 and 05/17/2016. TECHNIQUE: 2D and 3D bilateral screening mammography was performed with CAD. FINDINGS: Scattered fibroglandular densities are identified bilaterally. The fibroglandular pattern appears to be stable. No mass or malignant-appearing microcalcifications are seen. The axillae are unremarkable. IMPRESSION: No mammographic features suspicious for malignancy are identified. ACR BI-RADS Category 1: Negative. Result letter will be mailed to the patient. Note: At least 10% of breast cancer is not imaged by mammography. Dictated by: Dictated on workstation # [id number]
== END ==
LOC: RAD 10:51
PROVIDERS: ATTEND Family Medicine
DX: Z12.31 Encounter for screening mammogram for malignant neoplasm of breast (principal)
CPT/HCPCS: 77067

== ENCOUNTER 2019-02-27 05:39 | Outpatient (CLI) | payer MEDICARE, MEDICAID ==
[~2019-02-27] VITALS: Ht 160 cm; Wt 63.0 kg
[2019-02-27] MEDS ORDERED: FURO20TA4 PO (10:52)
[2019-02-27] MEDS ORDERED: OXYB5TAB9 PO (10:52)
[2019-02-27] MEDS ORDERED: BIMA2.5D4 OP (10:52)
[2019-02-27] MEDS ORDERED: TIMO5DRO31 OP (10:52)
[2019-02-27] MEDS ORDERED: ESTR42.511 VG (10:52)
[2019-02-27] MEDS ORDERED: CYCL1DRO OP (10:52)
== END 2019-02-27 10:58 | disposition home or self-care (01) ==
LOC: PREOP 05:39
PROVIDERS: ATTEND Surgery
DX: Z01.818 Encounter for other preprocedural examination (principal)

== ENCOUNTER 2019-03-01 10:34 | Day surgery (SDC) | payer MEDICARE, MEDICAID ==
[~2019-03-01] VITALS: Ht 160 cm; Wt 63.0 kg
[~2019-03-01 10:34] MED LIST changes: +BIMA2.5D4 OP; +CYCL1DRO OP; +ESTR42.511 VG; +FURO20TA4 PO; +OXYB5TAB9 PO; +TIMO5DRO31 OP
[2019-03-01] MEDS ORDERED: NS IV 500 ML 500 ML IV PRN (10:44)
[2019-03-01] MEDS ORDERED: LIDOCAINE JELLY 2% 6 ML SYRINGE MM PRN (10:45)
[2019-03-01] MEDS ORDERED: MIDAZOLAM 2 MG/2 ML (VERSED) VIAL IVP ONE (10:45)
[2019-03-01] MEDS ORDERED: fentaNYL INJECTION 100 MCG/2 ML AMP IVP ONE (10:45)
[2019-03-01] MEDS ORDERED: NS IV 500 ML 500 ML ONE (10:55)
--- NOTE | 2019-03-01 11:11 | Conscious Sedation/ASA ---
Conscious Sedation Pre-Proced Time 11:00 ASA Score 2 For ASA 3 and 4: Consider anesthesia and medical clearance. Also, for patients with a history of failed moderate sedation consider anesthesia. Airway Lungs Heart ASA score ASA 1: a normal healthy patient ASA 2: a patient with a mild systemic disease (mid diabetes, controlled hypertension, obesity ASA 3: a patient with a severe systemic disease that limits activity (angina, COPD, prior Myocardial infarction) ASA 4: a patient with an incapacitating disease that is a constant threat to life (CHF, renal failure) ASA 5: a moribund patient not expected to survive 24 hrs. (ruptured aneurysm) ASA 6: a declared brain- patient whose organs are being harvested. For emergent operations, add the letter E after the classification Mallampati Classification Grade 2 Sedation Plan Analgesia, Amnesia, Plan communicated to team members, Discussed options with patient/fam, Discussed risks with patient/fam The patient is an appropriate candidate to undergo the planned procedure, sedation, and anesthesia. The patient immediately re-assessed prior to indication. LEONOR CREWS MD Mar 01, 2019 11:11
--- NOTE | 2019-03-01 11:12 | Progress Note-Pre Operative ---
Pre-Operative Progress Note H&P Reviewed The H&P was reviewed, patient examined and no changes noted. Date Seen by Provider: Mar 01, 2019 Time Seen by Provider: 11:00 Date H&P Reviewed: Mar 01, 2019 Time H&P Reviewed: 11:00 Pre-Operative Diagnosis: hx polyp/screening colon LEONOR CREWS MD Mar 01, 2019 11:12
--- NOTE | 2019-03-01 11:14 | Discharge Inst-Surgical ---
D/C Lap Instructions-MARS Follow Up Activity as tolerated Incentive Spirometry use every 2 hours while awake High Fiber Diet 25g or more per day Avoid Alcohol, Caffeine, Spicy Coleraine and Acid foods. Drink 64 fluid oz or more of fluids per day. Symptoms to Report: Fever over 101 degree F, Nausea/Vomiting If any problems/questions: Contact your physician or go to Emergency Room LEONOR CREWS MD Mar 01, 2019 11:14
[2019-03-01] MEDS ORDERED: ACETAMINOPHEN 325 MG TABLET PO PRN (11:15)
[2019-03-01] MEDS ORDERED: morphine INJ 10 MG/ML 1ML (SYR OR VIAL) IVP PRN ×2 (11:15)
[2019-03-01] MEDS ORDERED: HYDROcodone/APAP 5 MG/325 MG (LORTAB) TAB PO PRN (11:15)
[2019-03-01] MEDS ORDERED: ONDANSETRON 4 MG/2 ML (SDV) Z0FRAN IVP PRN (11:15)
[2019-03-01] MEDS ORDERED: fentaNYL INJECTION 100 MCG/2 ML AMP ONE (11:44)
[2019-03-01] MEDS ORDERED: LIDOCAINE JELLY 2% 6 ML SYRINGE ONE (11:44)
[2019-03-01] MEDS ORDERED: MIDAZOLAM 2 MG/2 ML (VERSED) VIAL ONE ×4 (11:45→12:04)
[2019-03-01 12:40] VITALS: BP 130/58
--- NOTE | 2019-03-01 12:42 | Progress Note-Post Operative ---
Post-Operative Progess Note Surgeon (s)/Jinriksha Driver (s) Surgeon LEONOR CREWS MD Jinriksha Driver: none Pre-Operative Diagnosis hx polyp/screening colon Post-Operative Diagnosis mild chronic stage 1 ext and int hemorrhoids. Procedure & Operative Findings Date of Procedure 03/01/19 Procedure Performed/Findings colonoscopy Anesthesia Type cs Estimated Blood Loss Estimated blood loss (mL): minimal Specimens/Packing Specimens Removed none LEONOR CREWS MD Mar 01, 2019 12:42
[2019-03-01 13:10] VITALS: BP 152/74
[2019-03-01 13:30] VITALS: BP 152/74
--- NOTE | 2019-03-01 19:08 | OPERATIVE REPORT ---
DATE OF SERVICE: 03/01/2019 ATTENDING PRIMARY CARE PHYSICIAN: Dr. Carlton Connelly. PREOPERATIVE DIAGNOSIS: Screening colonoscopy with history of colon polyps. POSTOPERATIVE DIAGNOSIS: Screening colonoscopy with history of colon polyps. PROCEDURE: Colonoscopy. SURGEON: Leonor Crews MD ANESTHESIA: Conscious sedation. ESTIMATED BLOOD LOSS: Minimal. FINDINGS: The colonic preparation was poor; however, with irrigation, we were able to identify the cecum and the entirety of the colon. There were no obvious masses, polyps, or any neoplasms. DISPOSITION: The patient tolerated the procedure well. INDICATIONS: The patient is an 83-year-old female in need of a screening colonoscopy. She reports that she has had polyps identified in the past; however were benign. She is otherwise doing well. Does not report any red blood per rectum nor any dark tarry stools as well as no major issues with diarrhea nor constipation. She also does not report any family history of colon cancer. DESCRIPTION OF PROCEDURE: The patient was brought to the endoscopy suite, laid in the left lateral decubitus position. After adequate IV pain and sedative medications and conscious sedation anesthesia, a digital rectal examination was performed. Mild chronic stage I external and internal hemorrhoids were identified, not actively edematous nor inflamed, no bleeding. Normal sphincter tone was felt and there were no palpable masses. The endoscope was then intubated in to the anus and the rectum gently insufflated. The endoscope was then advanced through the valves of Lopez in the rectum. There was poor colonic preparation. However, the stool was soft and liquid and majority of the colonic lumen and part of the mucosa was identifiable through irrigation. The endoscope was then advanced through the sigmoid colon where no diverticulosis identified. We then proceeded to remainder of the descending, transverse and ascending colon to the cecum. These segments were normal. There were no polyps or any neoplasms identified. The endoscope was then slowly withdrawn while taking a second look and suctioning of residual air with no additional findings. The patient tolerated the procedure well. We will recommend continued medical management with a high fiber diet with at least 25 grams of fiber per day as well as significant amounts of water daily to promote soft stools on a daily basis. She does not need another colonoscopy for another 10 years. Job ID: [id number] DocumentID: [id number] Dictated Date: 03/01/2019 12:32:04 Validation Analyst Date: 03/01/2019 19:08:16 Dictated By: LEONOR CREWS MD
== END 2019-03-01 13:30 | disposition home or self-care (01) ==
LOC: ENDO 10:34
PROVIDERS: ATTEND Surgery
DX: Z12.11 Encounter for screening for malignant neoplasm of colon (principal); Z86.010 Personal history of colon polyps; I10 Essential (primary) hypertension; K21.9 Gastro-esophageal reflux disease without esophagitis; F41.0 Panic disorder [episodic paroxysmal anxiety]; Z79.899 Other long term (current) drug therapy

== ENCOUNTER 2019-03-30 19:55 | Emergency (ER) | payer MEDICARE, MEDICAID | END 2019-03-30 21:58 | disposition home or self-care (01) | LOC: ER 19:55 ==

== ENCOUNTER → 2019-04-18 | Outpatient (CLI) | payer MEDICARE, MEDICAID ==
[~2019-04-18] MED LIST changes: +AMOX-358 PO; +CLIN300C11 PO
== END ==
LOC: CARD 13:22
PROVIDERS: ATTEND Physician Assistant
DX: I08.2 Rheumatic disorders of both aortic and tricuspid valves (principal); K21.9 Gastro-esophageal reflux disease without esophagitis; I10 Essential (primary) hypertension; I25.10 Atherosclerotic heart disease of native coronary artery without angina pectoris
CPT/HCPCS: 93306

== ENCOUNTER → 2019-05-06 | Outpatient (CLI) | payer MEDICARE, MEDICAID ==
--- NOTE | 2019-05-06 09:18 | Diagnostic Imaging Report ---
INDICATION: Right breast pain for 3 weeks. TIME OF EXAM: 9:12 AM Correlation is made with prior chest from 06/20/2017. FINDINGS: The heart size is normal. The pulmonary vascularity is unremarkable. The lungs are clear. No infiltrate, effusion or pneumothorax is detected. IMPRESSION: No acute cardiopulmonary process is detected. Dictated by: Dictated on workstation # [id number]
== END ==
LOC: RAD 08:38
PROVIDERS: ATTEND Obstetrics & Gynecology
DX: N64.4 Mastodynia (principal); R07.81 Pleurodynia; R05 Cough
CPT/HCPCS: 71046

== ENCOUNTER → 2019-06-14 | Outpatient (CLI) | payer MEDICARE, MEDICAID ==
--- NOTE | 2019-06-14 12:59 | Diagnostic Imaging Report ---
INDICATION: Routine screening. COMPARISON: Comparison is made with prior mammogram from 06/13/2018 and 06/05/2017. 2-D and 3-D bilateral screening mammography was performed. The current study was also evaluated with a Computer Aided Detection (CAD) system. 3-D tomosynthesis was also performed and reviewed. FINDINGS: Scattered fibroglandular densities are identified bilaterally. The parenchymal pattern appears to be stable. No mass or malignant-appearing microcalcifications are seen. Axillae are unremarkable. IMPRESSION: No mammographic features suspicious for malignancy are identified. ACR BI-RADS Category 1: Negative. Result letter will be mailed to the patient. Note: At least 10% of breast cancer is not imaged by mammography. Dictated by: Dictated on workstation # [id number]
== END ==
LOC: RAD 09:33
PROVIDERS: ATTEND Obstetrics & Gynecology
DX: Z12.31 Encounter for screening mammogram for malignant neoplasm of breast (principal); N64.4 Mastodynia; R07.81 Pleurodynia; R05 Cough
CPT/HCPCS: 77067

== ENCOUNTER → 2020-06-25 | Outpatient (CLI) | payer OTHER, MEDICAID ==
[~2020-06-25] MED LIST changes: +OXYB5TAB13 PO; -OXYB5TAB9 PO; -PANT40TA3 PO; +PANT40TA52 PO
--- NOTE | 2020-06-25 17:30 | Diagnostic Imaging Report ---
INDICATION: Screening. At this time there are no current complaints. EXAMINATION: Bilateral digital screening mammogram with CAD. 3D tomographic images were obtained and reviewed. The current study was also evaluated with a Computer Aided Detection (CAD) system. COMPARISON: This study was compared to the prior exams of 06/14/2019, 06/13/2018 and 06/05/2017. FINDINGS: The fibroglandular tissue in both breasts is heterogeneously dense. This does limit the sensitivity of this exam. Overall, there does not appear to have been any significant change when compared to the prior study. No primary or secondary sign of malignancy is noted. IMPRESSION: There is no radiographic evidence for malignancy. ACR BI-RADS Category 1: Negative. Result letter will be mailed to the patient. Note: At least 10% of breast cancer is not imaged by mammography. Dictated by: Dictated on workstation # [id number]
== END ==
LOC: RAD 14:45
PROVIDERS: ATTEND Nurse Practitioner Family
DX: Z12.31 Encounter for screening mammogram for malignant neoplasm of breast (principal)
CPT/HCPCS: 77063; 77067

== ENCOUNTER → 2020-12-30 | Outpatient (CLI) | payer MEDICARE, MEDICAID ==
[~2020-12-30] MED LIST changes: -CLIN300C11 PO; +CLIN300C12 PO; +RT-ALBUTEROL SULF 2.5 MG/3 ML PRE-MIX VIAL INH ONE
--- NOTE | 2020-12-30 14:57 | Diagnostic Imaging Report ---
PROCEDURE: CT maxillofacial without contrast. TECHNIQUE: Multiple contiguous axial images were obtained through the facial bones without the use of intravenous contrast. Auto Exposure Controls were utilized during the CT exam to meet ALARA standards for radiation dose reduction. INDICATION: Fall. Right eye bruising and pain. COMPARISON: CT head on 09/13/2013. FINDINGS: Soft tissue edema is seen overlying the right maxilla. No associated fracture is seen involving the zygomatic arch or maxilla. The mandible is intact. The bilateral TMJ demonstrate normal articulation. The pterygoid plates have a normal appearance. No evidence of nasal bone fracture. The nasal septum is midline. The paranasal sinuses and mastoid air cells are clear. The globes and orbits demonstrate no acute abnormalities. The included intracranial contents are unremarkable. The included upper cervical spine has a normal appearance. The craniocervical junction is intact. IMPRESSION: 1. Soft tissue contusion overlying the right maxilla. No associated fracture. Dictated by: Dictated on workstation # [id number]
== END ==
LOC: RT 12:42
PROVIDERS: ATTEND Nurse Practitioner Family
DX: S00.83XA Contusion of other part of head, initial encounter (principal); W19.XXXA Unspecified fall, initial encounter; R05 Cough
CPT/HCPCS: 70486; 94060; 94726; 94729

== ENCOUNTER → 2021-04-02 | Outpatient (CLI) | payer MEDICARE, MEDICAID ==
[~2021-04-02] MED LIST changes: -RT-ALBUTEROL SULF 2.5 MG/3 ML PRE-MIX VIAL INH ONE
--- NOTE | 2021-04-02 12:58 | Diagnostic Imaging Report ---
INDICATION: Chronic cough. PA and lateral views of the chest are obtained with comparison made to study of 05/06/2019. FINDINGS: Heart size and pulmonary vascularity are within normal limits, and the lungs are clear, bilaterally. IMPRESSION: Unremarkable chest. Dictated by: Dictated on workstation # [id number]
--- NOTE | 2021-04-02 13:25 | Diagnostic Imaging Report ---
PROCEDURE: CT sinuses without contrast TECHNIQUE: Multiple contiguous axial images were obtained through the sinuses without the use of intravenous contrast. Coronal and sagittal reformations were then performed. Auto Exposure Controls were utilized during the CT exam to meet ALARA standards for radiation dose reduction. INDICATION: Cough. COMPARISON: Maxillofacial CT 12/30/2020. FINDINGS: The paranasal sinuses are clear. The ostiomeatal units and frontal recesses are patent. No large dejah bullosa. Mild rightward bowing of the nasal septum which is intact. Mild degenerative changes in the temporomandibular joints. The visualized mastoids and middle ears are clear. Skull base is intact. The orbits and visualized intracranial contents are unremarkable on this noncontrast exam. IMPRESSION: No CT evidence of acute or chronic sinusitis. Dictated by: Dictated on workstation # [id number]
== END ==
LOC: RAD 12:38
PROVIDERS: ATTEND Nurse Practitioner Family
DX: R05 Cough (principal)
CPT/HCPCS: 70486; 71046

== ENCOUNTER → 2021-05-17 | Outpatient (CLI) | payer MEDICARE, MEDICAID | LOC: LABNPT 08:00 | PROVIDERS: ATTEND Nurse Practitioner Family | DX: G47.30 Sleep apnea, unspecified (principal); G47.50 Parasomnia, unspecified; G47.10 Hypersomnia, unspecified; R06.83 Snoring; Z20.822 Contact with and (suspected) exposure to COVID-19 | CPT/HCPCS: 87635 ==

== ENCOUNTER 2021-05-19 19:42 | Outpatient (CLI) | payer MEDICARE, MEDICAID | END 2021-05-20 06:30 | disposition home or self-care (01) | LOC: SLEEP 19:42 | PROVIDERS: ATTEND Nurse Practitioner Family | DX: G47.33 Obstructive sleep apnea (adult) (pediatric) (principal) | CPT/HCPCS: 95811 ==

== ENCOUNTER → 2021-06-28 | Outpatient (CLI) | payer MEDICARE, MEDICAID ==
[~2021-06-28] MED LIST changes: +CLIN-144 PO; -CLIN300C12 PO
--- NOTE | 2021-06-28 12:55 | Diagnostic Imaging Report ---
INDICATION: Routine screening. COMPARISON: 06/25/2020 and 06/14/2019. TECHNIQUE: 2D and 3D bilateral screening mammography was performed with CAD. FINDINGS: Both breasts are heterogeneously dense, limiting the sensitivity of mammography. Benign calcifications are noted in both breasts. No mass or malignant appearing microcalcifications are seen. The axillae are unremarkable. IMPRESSION: No mammographic features suspicious for malignancy are identified. ACR BI-RADS Category 2: Benign findings. Result letter will be mailed to the patient. Note: At least 10% of breast cancer is not imaged by mammography. Dictated by: Dictated on workstation # [id number]
== END ==
LOC: RAD 11:00
PROVIDERS: ATTEND Obstetrics & Gynecology
DX: Z12.31 Encounter for screening mammogram for malignant neoplasm of breast (principal)
CPT/HCPCS: 77063; 77067

== ENCOUNTER → 2021-08-16 | Outpatient (CLI) | payer MEDICARE, MEDICAID ==
[~2021-08-16] MED LIST changes: +POTA-179; +POTA-179 PO; -POTA20TA15; -POTA20TA15 PO
--- NOTE | 2021-08-16 14:04 | Diagnostic Imaging Report ---
CT CHEST HIGH RES W/O Technique: Unenhanced contiguous and noncontiguous axial CT imaging of the chest was performed per the high-resolution protocol. Supine and prone imaging was performed. Coronal MIP reformats were also created and submitted for interpretation. Automatic exposure controls were utilized to keep dose as low as reasonably achievable. Indication: Chronic cough Comparison: None available. Findings: Lungs and airway: No traction bronchiectasis or honeycombing to indicate pulmonary fibrosis. No peribronchiolar consolidations. No ground-glass attenuation or micronodules. No air trapping No pulmonary mass, consolidation or suspicious nodule. Pleura: No pleural effusion or pneumothorax. Heart and mediastinum: The visualized thyroid is normal. No supraclavicular or axillary lymphadenopathy. No mediastinal or juxtaphrenic lymphadenopathy. No evidence of hilar lymphadenopathy, although evaluation is limited without IV contrast. Normal heart size without pericardial effusion. Normal caliber thoracic aorta. Upper abdomen: The visualized portions of upper abdomen are unremarkable by noncontrast evaluation, which is suboptimal for assessment of the abdominal viscera. Embolization coils are present in the region of left renal hilum. Musculoskeletal: No concerning osseous lesions in the thorax. IMPRESSION: 1. No interstitial lung disease. 2. No pneumonia, edema or other acute pulmonary pathology to account for patient's chronic cough. Dictated by: Dictated on workstation # [id number]
== END ==
LOC: RAD 12:45
PROVIDERS: ATTEND Pediatrics
DX: R05.3 Chronic cough (principal)
CPT/HCPCS: 71250

== ENCOUNTER → 2021-10-06 | Outpatient (CLI) | payer MEDICARE, MEDICAID ==
[2021-10-06 12:36] LABS: ALBUMIN 4.1 GM/DL (3.2-4.5); CALCIUM 10.1 MG/DL (8.5-10.1); CREATININE SERUM 1.35 MG/DL (0.60-1.30); MAGNESIUM 2.1 MG/DL (1.6-2.4); PHOSPHORUS 3.6 MG/DL (2.3-4.7); POTASSIUM 2.9 MMOL/L (3.6-5.0)
== END ==
LOC: LAB 11:44
PROVIDERS: ATTEND Pediatrics
DX: Z01.89 Encounter for other specified special examinations (principal)
CPT/HCPCS: 36415; 80069; 83735

== ENCOUNTER → 2022-08-11 | Outpatient (CLI) | payer MEDICARE, MEDICAID ==
--- NOTE | 2022-08-11 14:05 | Diagnostic Imaging Report ---
INDICATION: Routine screening. Comparison is made with prior mammogram from 06/28/2021 and 06/25/2020. 2-D and 3-D bilateral screening mammography was performed with CAD. CAD is utilized. The current study was also evaluated with a Computer Aided Detection (CAD) system. Both breasts are heterogeneously dense, limiting the sensitivity of mammography. There are scattered benign parenchymal and vascular calcifications. No dominant mass or malignant-appearing microcalcifications are seen. Axillae are unremarkable. IMPRESSION: BI-RADS Category 2 No mammographic features suspicious for malignancy are identified. ACR BI-RADS Category 2: Benign findings. Result letter will be mailed to the patient. Note: At least 10% of breast cancer is not imaged by mammography. Dictated by: Dictated on workstation # [id number]
== END ==
LOC: RAD 10:39
PROVIDERS: ATTEND Nurse Practitioner Family
DX: Z12.31 Encounter for screening mammogram for malignant neoplasm of breast (principal)
CPT/HCPCS: 77063; 77067